=== PATIENT | male | born 1955 | race Caucasian/White ===

== ENCOUNTER 2017-02-13 10:51 | Emergency (ER) | payer MEDICARE ==
[2017-02-13] MEDS ORDERED: BENADRYL 50 MG/ML IV ONE (11:01)
[2017-02-13] MEDS ORDERED: Sodium Chloride 0.9% 1000 ML 1,000 ML IV STA (11:01)
[2017-02-13] MEDS ORDERED: MORPHINE SULFATE 10 MG/ML IV ONE ×2 (11:01→12:16)
--- NOTE | 2017-02-13 11:10 | ERPHSYRPT ---
- History of Present Illness Time Seen by Provider: 02/13/17 10:56 Source: patient, family () Physician History: CC: left flank pain Hx: 61 y/o patient with hx of remote kidney stone disease and RA on chronic fentanyl patch. He awoke with severe left flank pain going to the left testicle since 5AM. Nausea without vomiting. Some abd ache. Decreased urination. No rash. Pain severe. Quality: sharpness, stabbing Onset Location: left flank Pain Radiation: groin Severity of Pain-Max: severe Severity of Pain-Current: severe Allergies/Adverse Reactions: oxycodone [From Percocet] Adverse Reaction (Intermediate, Verified 02/13/17 11: 50) Rash pt states he only gets a mild rash after he takes darvon for a few days Home Medications: Amitriptyline HCl 100 mg PO HS 02/13/17 [History] Aspirin [Aspirin EC] 81 mg PO DAILY 02/13/17 [History] Ergocalciferol (Vitamin D2) [Vitamin D2] 2,000 unit PO DAILY 02/13/17 [History] Folic Acid 1 mg [Folate 1 mg] 1 mg PO DAILY 02/13/17 [History] Metformin HCl [Metformin HCl ER] 500 mg PO 02/13/17 [History] Metoprolol Succinate 25 mg PO DAILY 02/13/17 [History] [place]-3 Fatty Acids/Fish Oil [Fish Oil 1,000 mg Capsule] 1 each PO DAILY [History] Omeprazole 20 MG [Prilosec 20 mg] 20 mg PO DAILY 02/13/17 [History] Ramipril [Altace] 10 mg PO DAILY 02/13/17 [History] Rosuvastatin Calcium 10 mg PO DAILY 02/13/17 [History] Zolpidem Tartrate 5 mg PO DAILY 02/13/17 [History] Hx Tetanus, Diphtheria Vaccination/Date Given: No Hx Influenza Vaccination/Date Given: No Hx Pneumococcal Vaccination/Date Given: No - Past Medical History Pertinent Past Medical History: Yes Cardiac History: Hypertension Musculoskeletal History: Rheumatoid Arthritis - Past Surgical History Past Surgical History: Yes Cardiac: Cardiac Catheterization, Cardiac Stent Musculoskeletal: Orthopedic Surgery - Social History Smoking Status: Current every day smoker How long have you smoked: yrs Exposure to second hand smoke: No Drug Use: none Patient Lives Alone: No - Review of Systems Constitutional: No Fever, No Chills Eyes: No Symptoms Ears, Nose, & Throat: No Symptoms Respiratory: No Symptoms, No Cough Cardiac: No Chest Pain Abdominal/Gastrointestinal: Abdominal Pain, Nausea, No Vomiting Genitourinary Symptoms: Dysuria, Frequency, Hesitancy Musculoskeletal: Back Pain (left flank) Skin: No Rash Neurological: No Headache All Other Systems: Reviewed and Negative - Nursing Vital Signs Nursing Vital Signs: Initial Vital Signs Temperature 97.5 F 02/13/17 11:10 Pulse Rate 70 02/13/17 11:10 Respiratory Rate 18 02/13/17 11:10 Blood Pressure 146/76 02/13/17 11:10 O2 Sat by Pulse Oximetry 96 02/13/17 11:10 Pain Scale Pain Intensity 8 - Physical Exam General Appearance: alert Eye Exam: PERRL/EOMI Ears, Nose, Throat Exam: normal ENT inspection, moist mucous membranes Neck Exam: normal inspection, non-tender, supple Respiratory Exam: normal breath sounds Cardiovascular Exam: regular rate/rhythm Gastrointestinal/Abdomen Exam: soft, No tenderness, No distention Male Genital Exam: normal genitalia Back Exam: normal inspection, CVA tenderness (left) Extremity Exam: normal inspection, normal range of motion Neurologic Exam: alert, oriented x 3, cooperative Skin Exam: warm, dry, No rash - Course Nursing assessment & vital signs reviewed: Yes - Radiology Ultrasound Exam abd/pelvis Ultrasound: tele radiology report (5mm left UVJ stone with hydro) Ordered Tests: Active Orders 24 hr Category Date Time Status Clean Catch Urine Specimen STAT Care 02/13/17 11:01 Active IV Insertion STAT Care 02/13/17 11:01 Active NPO (ED) STAT Care 02/13/17 11:01 Active ABDOMEN AND PELVIS W/0 CONTRAS [CT] Stat Exams 02/13/17 11:01 Completed CBC W DIFF Stat Lab 02/13/17 11:09 Completed CMP Stat Lab 02/13/17 11:09 Completed CULTURE,URINE Stat Lab 02/13/17 11:09 Received UA W/ MICROSCOPIC Stat Lab 02/13/17 11:09 Completed Medication Summary Discontinued Medications Generic Name Dose Route Start Last Admin Trade Name Freq PRN Reason Stop Dose Admin Diphenhydramine HCl 25 mg 02/13/17 11:01 02/13/17 11:48 Benadryl 50 Mg/Ml IV 02/13/17 11:02 25 mg STAT ONE Administration Diphenhydramine HCl Confirm 02/13/17 11:39 Benadryl 50 Mg/Ml Administered 02/13/17 11:40 Dose 50 mg .ROUTE .STK-MED ONE Sodium Chloride 1,000 mls @ 999 mls/hr 02/13/17 11:01 02/13/17 11:48 Sodium Chloride 0.9% 1000 Ml IV 02/13/17 12:01 999 mls/hr .Q1H1M STA Administration Sodium Chloride Confirm 02/13/17 11:39 Sodium Chloride 0.9% 1000 Ml Administered 02/13/17 11:40 Dose 1,000 mls @ ud .ROUTE .STK-MED ONE Morphine Sulfate 6 mg 02/13/17 11:01 02/13/17 11:51 Morphine Sulfate 10 Mg/Ml IV 02/13/17 11:02 6 mg STAT ONE Administration Morphine Sulfate Confirm 02/13/17 11:39 Morphine Sulfate 2 Mg Inj Administered 02/13/17 11:40 Dose 2 mg .ROUTE .STK-MED ONE Morphine Sulfate Confirm 02/13/17 11:39 Morphine Sulfate 4 Mg Inj Administered 02/13/17 11:40 Dose 4 mg .ROUTE .STK-MED ONE Morphine Sulfate 5 mg 02/13/17 12:16 02/13/17 12:20 Morphine Sulfate 10 Mg/Ml IV 02/13/17 12:17 5 mg STAT ONE Administration Morphine Sulfate Confirm 02/13/17 12:17 Morphine Sulfate 10 Mg/Ml Administered 02/13/17 12:18 Dose 10 mg .ROUTE .STK-MED ONE Lab/Rad Data: Laboratory Result Diagrams 02/13/17 11:09 02/13/17 11:09 Laboratory Results 02/13/17 02/13/17 02/13/17 Range/Units 11:09 11:09 11:09 WBC 8.2 (4.0-10.5) K/mm3 RBC 4.45 (4.1-5.6) M/mm3 Hgb 13.6 (12.5-18.0) gm/dl Hct 41.1 L (42-50) % MCV 92.4 (78-100) fl MCH 30.6 (26-32) pg MCHC 33.1 (32-36) g/dl RDW 12.3 (11.5-14.0) % Plt Count 177 (150-450) K/mm3 MPV 11.6 H (6-9.5) fl Gran % 49.8 (36.0-66.0) % Lymphocytes % 38.0 (24.0-44.0) % Monocytes % 9.1 (0.0-12.0) % Eosinophils % 2.9 (0.00-5.0) % Basophils % 0.2 (0.0-0.4) % Basophils # 0.02 (0-0.4) Sodium 144 (136-145) mEq/L Potassium 3.4 L (3.5-5.1) mEq/L Chloride 107 (98-107) mEq/L Carbon Dioxide 28.0 (21-32) mEq/L Anion Gap 11.9 (5-15) MEQ/L BUN 16 (9-20) mg/dL Creatinine 1.17 (0.55-1.30) mg/dl Estimated GFR > 60 ML/MIN Glucose 163 H (70-110) MG/DL Calcium 9.0 (8.5-10.1) mg/dL Total Bilirubin 0.60 (0.2-1.0) mg/dL AST 31 (15-37) U/L ALT 26 (12-78) U/L Alkaline Phosphatase 59 (46-116) U/L Serum Total Protein 7.4 (6.4-8.2) gm/dL Albumin 3.7 (3.4-5.0) g/dL Ur Collection Type VOID Urine Color YELLOW (YELLOW) Urine Appearance CLOUDY (CLEAR) Urine pH 5.0 (5-6) Ur Specific [place] 1.030 (1.005-1.025) Urine Protein 30 (Negative) Urine Ketones NEGATIVE (NEGATIVE) Urine Blood 250 (0-5) Partha/ul Urine Nitrite NEGATIVE (NEGATIVE) Urine Bilirubin NEGATIVE (NEGATIVE) Urine Urobilinogen NORMAL (0-1) mg/dL Ur Leukocyte Esterase TRACE (NEGATIVE) Urine Microscopic RBC >100 (0-2) /HPF Urine Microscopic WBC 2-5 (0-5) /HPF Ur Epithelial Cells FEW (FEW) /HPF Urine Bacteria MODERATE (NEGATIVE) /HPF Urine Mucus MODERATE (NEGATIVE) /HPF Urine Glucose NEGATIVE (NEGATIVE) mg/dL Specimen Received 02/13/17 1051 - Progress Progress Note: 02/13/17 11:[address] to assess for renal stone disease. 02/13/17 12:43 He has renal colic. Instr given. Counseled pt/family regarding: lab results, diagnosis, need for follow-up, rad results - Departure Time of Disposition: 12:43 Departure Disposition: Home Clinical Impression: Renal colic on left side, left UVJ stone Condition: Stable Critical Care Time: No Referrals: GREG STRICKLAND MD [Primary Care Provider] - Instructions: Kidney Stones Additional Instructions: Rx norco for pain. Strain urine for stone. No driving or operating machinery. Follow up in 1-[address] Strickland or urology. Return for fever, recurrent vomiting, uncontrolled pain or concerns. Prescriptions: Hydrocodone/APAP 5/325 [[place] 5/325 mg] 1 each PO Q4-6HPRN PRN #20 tablet PRN Reason: Pain
[2017-02-13 11:19] LABS: BASOPHIL % 0.2 % (0.0-0.4); Eosinophil % 2.9 % (0.00-5.0); Granulocytes % 49.8 % (36.0-66.0); Mean Cell Volume 92.4 fl (78-100); Mean Corpuscular Hemoglobin 30.6 pg (26-32); Mean Platelet Volume 11.6 fl (6-9.5); Monocytes % 9.1 % (0.0-12.0); Platelet Count 177 K/mm3 (150-450); Red Blood Count 4.45 M/mm3 (4.1-5.6); Red Cell Distribution Width 12.3 % (11.5-14.0); White Blood Count 8.2 K/mm3 (4.0-10.5)
[2017-02-13 11:23] LABS: Collection Type VOID
[2017-02-13 11:24] LABS: Bacteria MODERATE /HPF (NEGATIVE); Bilirubin NEGATIVE (NEGATIVE); Blood 250 Ery/ul (0-5); COMPLETE URINE MICROSCOPIC? YES; Epithelial Cells FEW /HPF (FEW); Glucose NEGATIVE (NEGATIVE); Leukocyte Esterase TRACE (NEGATIVE); Mucus MODERATE /HPF (NEGATIVE)
[2017-02-13 11:25] LABS: ADD URINE CULTURE? YES (NO)
[2017-02-13 11:37] LABS: ALBUMIN 3.7 g/dL (3.4-5.0); ALKALINE PHOSPHATASE 59 U/L (46-116); ANION GAP 11.9 MEQ/L (5-15); BLOOD UREA NITROGEN 16 mg/dL (9-20); CHLORIDE 107 mEq/L (98-107); Glucose 163 MG/DL (70-110); Potassium 3.4 mEq/L (3.5-5.1); SGOT/AST 31 U/L (15-37); SGPT/ALT 26 U/L (12-78); SODIUM 144 mEq/L (136-145); Total Protein 7.4 gm/dL (6.4-8.2)
[2017-02-13] MEDS ORDERED: Sodium Chloride 0.9% 1000 ML 1,000 ML ONE (11:39)
[2017-02-13] MEDS ORDERED: BENADRYL 50 MG/ML ONE (11:39)
[2017-02-13] MEDS ORDERED: MORPHINE SULFATE 4 MG INJ ONE ×2 (11:39→12:49)
[2017-02-13] MEDS ORDERED: MORPHINE SULFATE 2 MG INJ ONE (11:39)
--- NOTE | 2017-02-13 12:09 | XRAY ---
Indication: Lower abdomen/pelvic pain. Multiple contiguous axial images obtained through the abdomen and pelvis without contrast using renal stone protocol. Comparison: None Lung bases demonstrates left base subsegmental atelectasis and right base dependent atelectasis/scarring. Heart is not enlarged. There is left hemidiaphragm elevation. There is a 5 mm left UVJ calculus. Proximal left ureter is prominent up to 9 mm along with moderate hydronephrosis and mild perinephric stranding consistent with obstructive uropathy. Noncontrasted stomach and bowel loops appear nonobstructed. Normal appendix. Minimal colonic diverticulosis. Remaining liver, gallbladder, pancreas, spleen, adrenal glands, right kidney, right ureter, and bladder appear unremarkable for noncontrast exam. Mild aortoiliac calcifications without AAA. Osseous structures intact with mild degenerative changes throughout the spine and previous L5-S1 laminectomy. Small fatty right inguinal hernia. Impression: 1. 5 mm left UVJ calculus producing partial obstruction as detailed. 2. Minimal colonic diverticulosis and small fatty right inguinal hernia. CT DI 28.14
[2017-02-13] MEDS ORDERED: MORPHINE SULFATE 10 MG/ML ONE (12:17)
[2017-02-13] MEDS ORDERED: TORAdol 30 mg Injection IV ONE (12:42)
[2017-02-13] MEDS ORDERED: MORPHINE SULFATE 4 MG INJ IV ONE (12:42)
[2017-02-13] MEDS ORDERED: TORAdol 30 mg Injection ONE (12:49)
[2017-02-13 13:45] VITALS: BP 130/72; PULSE 72; O2SAT 65
== END 2017-02-13 13:44 | disposition home or self-care (01) ==
LOC: ED 10:51
DX: N23 Unspecified renal colic (principal); N20.1 Calculus of ureter; R11.10 Vomiting, unspecified; Z79.899 Other long term (current) drug therapy; I10 Essential (primary) hypertension
CPT/HCPCS: 36000; 36415; 74176; 80053; 81000; 85025; 87086; 96360; 96374; 96376; 99284; J1200; J1885; J2270

== ENCOUNTER 2019-11-13 18:13 | Emergency (ER) | payer MEDICARE ==
[2019-11-13 18:24] VITALS: O2SAT 97
--- NOTE | 2019-11-13 19:20 | ERPHSYRPT ---
- History of Present Illness Time Seen by Provider: 11/13/19 18:22 Source: patient Exam Limitations: no limitations Patient Subjective Stated Complaint: PT states "I hit my left thunb wth a hammer and it was kind of bent so I straightened it and it did all kinds of crunching and it still really hurts." Triage Nursing Assessment: Pt presented alert and oriented X3, skin pwd Pt ambulates with an upright steady gait, able to speak in clear full sentences pt thumb on his left hand has bruising noted. cap refill <2 distall to injury. Physician History: Patient is a 64-year-old male presents to our ED with complaints of injury to left thumb. Patient was hammering using his right hand and inadvertently hammered his left thumb. Patient states his thumb was angulated and he manually reduced it. Patient felt a crackling sensation upon reduction and realized that he may have fractured his thumb. Patient is here for x-ray. Patient declined pain medication. No other injuries. Tetanus is not up-to-date. No other injuries reported. Patient denies pain to his hand fingers wrist elbow shoulder. He voices no other complaints at this time. Occurred: just prior to arrival Method of Injury: direct blow Quality: constant Severity of Pain-Max: moderate Severity of Pain-Current: mild Extremities Pain Location: thumb: left Modifying Factors: Improves With: movement, rest Associated Symptoms: none Allergies/Adverse Reactions: oxycodone [From Percocet] Adverse Reaction (Intermediate, Verified 02/13/17 11:50) Rash pt states he only gets a mild rash after he takes darvon for a few days Home Medications: Amitriptyline HCl 100 mg PO HS 02/13/17 [History] Aspirin [Aspirin EC] 81 mg PO DAILY 02/13/17 [History] Ergocalciferol (Vitamin D2) [Vitamin D2] 2,000 unit PO DAILY 02/13/17 [History] Folic Acid 1 mg [Folate 1 mg] 1 mg PO DAILY 02/13/17 [History] Metformin HCl [Metformin HCl ER] 500 mg PO DAILY 02/13/17 [History] Metoprolol Succinate 25 mg PO DAILY 02/13/17 [History] [place]-3 Fatty Acids/Fish Oil [Fish Oil 1,000 mg Capsule] 1 each PO DAILY 02/13/17 [History] Omeprazole 20 MG [Prilosec 20 mg] 20 mg PO DAILY 02/13/17 [History] Ramipril [Altace] 10 mg PO DAILY 02/13/17 [History] Rosuvastatin Calcium 10 mg PO DAILY 02/13/17 [History] Zolpidem Tartrate 5 mg PO DAILY 02/13/17 [History] Hx Tetanus, Diphtheria Vaccination/Date Given: No Hx Influenza Vaccination/Date Given: Yes Hx Pneumococcal Vaccination/Date Given: Yes Immunizations Up to Date: Yes Travel Risk - International Travel Have you traveled outside of the country in past 3 weeks: No - Coronavirus Screening Close contact with a COVID-19 positive Pt in past 14-21 Days: No - Review of Systems Constitutional: No Symptoms, No Fever, No Chills Eyes: No Symptoms Ears, Nose, & Throat: No Symptoms Respiratory: No Symptoms, No Cough, No Dyspnea Cardiac: No Symptoms, No Chest Pain, No Edema, No Syncope Abdominal/Gastrointestinal: No Symptoms, No Abdominal Pain, No Nausea, No Vomiting, No Diarrhea Genitourinary Symptoms: No Symptoms, No Dysuria Musculoskeletal: No Symptoms, No Back Pain, No Neck Pain Skin: No Symptoms, No Rash Neurological: No Dizziness, No Focal Weakness, No Sensory Changes Psychological: No Symptoms Endocrine: No Symptoms Hematologic/Lymphatic: No Symptoms Immunological/Allergic: No Symptoms All Other Systems: Reviewed and Negative - Past Medical History Pertinent Past Medical History: Yes Cardiac History: Hypertension Endocrine Medical History: Diabetes Type II Musculoskeletal History: Rheumatoid Arthritis GI Medical History: GERD - Past Surgical History Past Surgical History: Yes Cardiac: Cardiac Catheterization, Cardiac Stent Gastrointestinal: Other Musculoskeletal: Orthopedic Surgery - Social History Smoking Status: Former smoker How long have you smoked: yrs Exposure to second hand smoke: Yes Drug Use: none Patient Lives Alone: No - Nursing Vital Signs Nursing Vital Signs: Initial Vital Signs Temperature 98.8 F 11/13/19 18:17 Pulse Rate 110 H 11/13/19 18:17 Respiratory Rate 20 11/13/19 18:17 Blood Pressure 131/94 11/13/19 18:17 O2 Sat by Pulse Oximetry 97 11/13/19 18:17 Pain Scale Pain Intensity 2 - Physical Exam General Appearance: no apparent distress, alert Eyes, Ears, Nose, Throat Exam: normal ENT inspection, moist mucous membranes, No pharyngeal erythema Neck Exam: normal inspection, non-tender, full range of motion Cardiovascular/Respiratory Exam: normal breath sounds, regular rate/rhythm, no respiratory distress, No tachycardia, No extra beats, No accessory muscle use Abdominal Exam: non-tender, soft, No guarding Back Exam: vertebral tenderness Shoulder Exam: normal inspection, normal ROM, No limited ROM Elbow/Forearm Exam: normal inspection, no evidence of injury, normal ROM, No limited ROM Wrist Exam: normal inspection, non-tender, normal ROM, No limited ROM Hand Exam: normal inspection (Tenderness to palpation of the proximal phalanx of the left thumb. Overlying soft tissue intact. No open or draining lesions. No subungual hematoma. Sensation to light touch intact. No lacerations. Motion at the IP joint is guarded due to pain. Compartments are soft. Cap refill less than 2 ), non-tender, normal ROM, No asymmetry Neuro/Tendon Exam: normal sensation, normal motor functions Mental Status Exam: alert, oriented x 3, cooperative Skin Exam: normal color, warm, dry SpO2 Interpretation: normal SpO2: 97 O2 Delivery: Room Air - Course Nursing assessment & vital signs reviewed: Yes - Radiology Exams Hand X-ray Interpretation: Interpreted by me (Comminuted fracture proximal phalanx left thumb.) Ordered Tests: Active Orders 24 hr Category Date Time Status Splint STAT Care 11/13/19 19:12 Ordered HAND (MINIMUM 3 VIEWS) Stat Exams 11/13/19 18:27 Taken - Departure Departure Disposition: Home Clinical Impression: Comminuted fracture, Thumb fracture Condition: Stable Critical Care Time: No Referrals: GREG STRICKLAND MD [Primary Care Provider] - Additional Instructions: Discharge/Care Plan TISH OWENS was seen on 11/13/19 in the Emergency Room. The patient was counseled regarding Diagnosis,Lab results, Imaging studies, need for follow up and when to return to the Emergency Room. Prescriptions given: Discharge Note I have spoken with the patient and/or caregivers. I have explained the patient's condition, diagnosis and treatment plan based on the information available to me at this time. I have answered the patient's and/or caregiver's questions and addressed any concerns. The patient and/or caregivers have as good understanding of the patient's diagnosis, condition and treatment plan as can be expected at t his point. The vital signs have been stable. The patient's condition is stable and appropriate for discharge from the emergency department. The patient will pursue further outpatient evaluation with the primary care physician or other designated or consulting physician as outlined in the discharge instructions. The patient and/or caregivers are agreeable to this plan of care and follow-up instructions have been explained in detail. The patient and/or caregivers have received these instruction. The patient/and or caregivers are aware that any significant change in condition or worsening of symptoms should prompt an immediate return to this or the closest emergency department or call 911. Outpatient Orders: Ortho Referral Time Frame: 1 Day, Facility: [facility], Location: [facility]
[2019-11-13] MEDS ORDERED: Adacel Vial IM ONE ×2 (19:26→19:32)
[2019-11-13 20:09] VITALS: BP 135/102; PULSE 69
--- NOTE | 2019-11-14 08:57 | XRAY ---
Indication: Thumb pain following crush injury. Comparison: None 3 view left hand demonstrates nondisplaced comminuted fracture 1st proximal phalanx distally with intra-articular extension and mild soft tissue swelling. Elsewhere mild osteopenia, minimal degenerative changes all IP joints, and tiny capitate bone cyst.
== END 2019-11-13 20:00 | disposition home or self-care (01) ==
LOC: ED 18:13
DX: S62.512A Displaced fracture of proximal phalanx of left thumb, initial encounter for closed fracture (principal); W22.8XXA Striking against or struck by other objects, initial encounter
CPT/HCPCS: 73130; 90471; 90715; 99284

== ENCOUNTER 2024-12-19 11:55 | Emergency (ER) | payer MEDICARE ==
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
== END 2024-12-19 12:17 | disposition left against medical advice (07) ==
LOC: ED 11:55
DX: Z53.21 Procedure and treatment not carried out due to patient leaving prior to being seen by health care provider (principal)